=== PATIENT | female | born 1940 | race Caucasian/White ===

== ENCOUNTER 2017-11-10 10:08 | Outpatient (CLI) | payer MEDICARE | END 2017-11-10 10:09 | disposition home or self-care (01) | LOC: BICMAMMO 10:08 | PROVIDERS: ATTEND Obstetrics & Gynecology | DX: Z12.31 Encounter for screening mammogram for malignant neoplasm of breast (principal) | CPT/HCPCS: 77063; G0202; 77067 ==

== ENCOUNTER 2017-12-22 17:00 | Outpatient (CLI) | payer MEDICARE | END 2017-12-22 17:01 | disposition home or self-care (01) | LOC: SLEEPLAB 17:00 | PROVIDERS: ATTEND Family Medicine | DX: G47.33 Obstructive sleep apnea (adult) (pediatric) (principal); E66.9 Obesity, unspecified; K21.9 Gastro-esophageal reflux disease without esophagitis; R06.3 Periodic breathing | CPT/HCPCS: 95806 ==

== ENCOUNTER 2018-03-03 16:06 | Outpatient (CLI) | payer MEDICARE | END 2018-03-03 16:07 | disposition home or self-care (01) | LOC: BICRAD 16:06 | PROVIDERS: ATTEND Physical Medicine & Rehabilitation | DX: M25.561 Pain in right knee (principal); M25.562 Pain in left knee; M17.0 Bilateral primary osteoarthritis of knee ==

== ENCOUNTER 2018-11-11 11:14 | Outpatient (CLI) | payer MEDICARE | END 2018-11-11 11:15 | disposition home or self-care (01) | LOC: BICMAMMO 11:14 | PROVIDERS: ATTEND Family Medicine | DX: Z12.31 Encounter for screening mammogram for malignant neoplasm of breast (principal); Z80.3 Family history of malignant neoplasm of breast | CPT/HCPCS: 77063; 77067 ==

== ENCOUNTER 2019-07-12 12:42 | Outpatient (CLI) | payer MEDICARE ==
--- NOTE | 2019-07-12 15:09 | ULT ---
BILATERAL CAROTID DUPLEX ULTRASOUND: DATE: 07/12/19 HISTORY: Partial retinal artery occlusion TECHNIQUE: Benavides scale ultrasound with color flow and spectral Doppler imaging of the extracranial carotid artery systems performed bilaterally. FINDINGS: There is mild plaque formation on either side. The peak systolic velocity in the right ICA measures 35 cm/second with an end-diastolic velocity of 6 cm/second and a systolic ratio of 0.43. The peak systolic velocity in the left ICA measures 49 cm/second with an end-diastolic velocity of 14 cm/second and a systolic ratio of 0.65. Flow in both vertebral arteries remains antegrade. IMPRESSION: No evidence of hemodynamically significant stenosis in either ICA. POS: [facility]
== END 2019-07-12 12:43 | disposition home or self-care (01) ==
LOC: ULT 12:42
PROVIDERS: ATTEND Family Medicine
DX: H34.219 Partial retinal artery occlusion, unspecified eye (principal); I08.8 Other rheumatic multiple valve diseases
CPT/HCPCS: 93306; 93880

== ENCOUNTER 2019-12-07 10:22 | Outpatient (CLI) | payer MEDICARE ==
--- NOTE | 2019-12-07 11:50 | MMO ---
Bilateral MAMMO Bilat Screen [facility]. CLINICAL HISTORY: Patient is 79 years old and is seen for screening. The patient has no personal history of cancer. The patient has a history of left Stereotatic Biopsy in May, - benign and left Cyst Aspiration in - benign. VIEWS: The views performed were: bilateral craniocaudal with tomosynthesis and bilateral mediolateral oblique with tomosynthesis. FILMS COMPARED: The present examination has been compared to prior imaging studies performed at [facility] on 08/22/2015, 09/10/2016, 11/10/2017 and 11/11/2018. This study has been interpreted with the assistance of computer-aided detection. MAMMOGRAM FINDINGS: There are scattered fibroglandular densities. There are stable benign appearing calcifications seen in both breasts. There are no suspicious masses, suspicious calcifications, or new areas of architectural distortion. IMPRESSION: THERE IS NO MAMMOGRAPHIC EVIDENCE OF MALIGNANCY. A ROUTINE FOLLOW-UP MAMMOGRAM IN 1 YEAR IS RECOMMENDED. THE RESULTS OF THIS EXAM WERE SENT TO THE PATIENT. ACR BI-RADS Category 2 - Benign finding MAMMOGRAPHY NOTE: 1. A negative mammogram report should not delay a biopsy if a dominant of clinically suspicious mass is present. 2. Approximately 10% to 15% of breast cancers are not detected by mammography. 3. Adenosis and dense breasts may obscure an underlying neoplasm. Reported by: MELLISA ERNANDEZ MD Electonically Signed: [id number]
== END 2019-12-07 10:23 | disposition home or self-care (01) ==
LOC: BICMAMMO 10:22
PROVIDERS: ATTEND Obstetrics & Gynecology
DX: Z12.31 Encounter for screening mammogram for malignant neoplasm of breast (principal)
CPT/HCPCS: 77063; 77067

== ENCOUNTER 2022-12-27 14:21 | Outpatient (CLI) | payer MEDICARE, OTHER | END 2022-12-27 14:22 | disposition home or self-care (01) | LOC: TBSIIMAG 14:21 | PROVIDERS: ATTEND Family Medicine | DX: M47.26 Other spondylosis with radiculopathy, lumbar region (principal) | CPT/HCPCS: 72120 ==

== ENCOUNTER 2023-02-20 10:10 | Outpatient (CLI) | payer OTHER | END 2023-02-20 10:11 | disposition home or self-care (01) | LOC: TBSIIMAG 10:10 | PROVIDERS: ATTEND Neurological Surgery | DX: M51.16 Intervertebral disc disorders with radiculopathy, lumbar region (principal); M47.26 Other spondylosis with radiculopathy, lumbar region; M47.817 Spondylosis without myelopathy or radiculopathy, lumbosacral region; M89.38 Hypertrophy of bone, other site | CPT/HCPCS: 72148 ==